=== PATIENT | female | born 1985 | race Caucasian/White ===

== ENCOUNTER 2017-05-14 08:52 | Emergency (ER) | payer OTHER ==
--- NOTE | 2017-05-14 09:01 | ED ---
Upper Extremity Pain - HPI Summary HPI Summary: Patient presents to with CC of R hand pain x 5 days. Patient reports "waking up with pain in my first 2 fingers" of her R hand. She denies any known ERIK or trauma, but reports "falling down the stairs on Thanksgiving" without direct hand pain at time of fall. She reports numbness and tingling chronically in her fingers and hand from chronic bilateral carpal tunnel - but reports acute worsening of her pain and neuropathy in first 2 digits, with radiation up to the elbow. Pain is most pronounced at the wrist and first joint of the thumb. She wears nightly splints, and takes ibprofen chronically - which has not relieved her symptoms. PCP is managing her chronic b/l C. tunnel. 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 - History of Current Complaint Stated Complaint: RIGHT HAND PAIN Time Seen by Provider: 05/14/17 08:59 Hx Obtained From: Patient Hx Last Menstrual Period: 12/11/15 - Allergies/Home Medications Allergies/Adverse Reactions: Allergies Allergy/AdvReac Type Severity Reaction Status Date / Time Hydrocodone Allergy Severe Hyperventalation,difficulty Verified 05/14/17 09:02 breathing PMH/Surg Hx/FS Hx/Imm Hx Psychiatric History: Reports: Hx Anxiety - and history of bilateral carpal tunnel - Surgical History Surgery Procedure, Year, and Place: Appendectomy. X2. TUBAL LIGATION - Family History Known Family History: Positive: Hypertension - Social History Alcohol Use: None Substance Use Type: Reports: None Smoking Status (MU): Heavy Every Day Tobacco Smoker Type: Cigarettes Amount Used/How Often: 1 PPD Have You Smoked in the Last Year: Yes Review of Systems All Other Systems Reviewed And Are Negative: Yes Physical Exam Triage Information Reviewed: Yes Vital Signs Reviewed: Yes Appearance: Positive: Well-Appearing Skin: Positive: Warm, Skin Color Reflects Adequate Perfusion Head/Face: Positive: Normal Head/Face Inspection Eyes: Positive: Normal Musculoskeletal: Positive: Other - R hand: normal inspection. Tenderness to palpation at MCP, PIP joint. Thenar immenence nontender. metacarpals nontender. no snuffbox tenderness. Wrist AROM PROM wnl. Radial +2. Oxygen Therapy Teacher strength weakened. Thumb opposition normal. No palpable abnormality. Psychiatric: Positive: Normal AVPU Assessment: Alert Diagnostics - Laboratory Lab Statement: Any lab studies that have been ordered have been reviewed, and results considered in the medical decision making process. - Radiology R wrist xr negative Xray Interpretation: No Acute Changes Course/Dx - Diagnoses Provider Diagnoses: Neuropathy of right hand Discharge - Discharge Plan Condition: Stable Disposition: HOME Referrals: Irma CONNOLLY,Arthur Araiza [Physician Tuna Purse Seiner] - As Soon As Possible Additional Instructions: As we discussed, your xrays were negative for any acute bony dislocation/ fracture or misalignment. I suspect this is a reactivation or flare up of your chronic carpal tunnel syndrome. I advise you to continue taking ibuprofen as needed for pain relief, using your nightly wrist splints, and activity modification - especially as you are a feed preparation operator. Please follow up with your PCP to discuss further options including surgery for this chronic issue. Please return if your symptoms worsen or do not improve expectantly. Images - Images Hands: 1 - TTP.
[2017-05-14 09:02] VITALS: BP 124/71
--- NOTE | 2017-05-14 09:51 | RAD ---
Indication: Right wrist pain, first and second digit pain 3 views of the wrist demonstrates no fracture. No other bone or joint abnormality is identified. IMPRESSION: NO FRACTURE OF THE WRIST IS NOTED.
== END 2017-05-14 10:14 | disposition home or self-care (01) ==
LOC: UCCORT 08:52
DX: G62.9 Polyneuropathy, unspecified (principal); F41.9 Anxiety disorder, unspecified; Z88.5 Allergy status to narcotic agent; F17.210 Nicotine dependence, cigarettes, uncomplicated
CPT/HCPCS: 99211; G0463

== ENCOUNTER 2017-12-28 09:58 | Emergency (ER) | payer OTHER ==
[2017-12-28 10:29] VITALS: BP 110/54
--- NOTE | 2017-12-28 11:01 | UC ---
Skin Complaint HPI - HPI Summary HPI Summary: Pt c/o sudden onset of fine, pruritic rash that began 2 days ago on left buttock cheek and has diffusely spread to upper and lower extremities as well as trunk. Pt reports that she is "getting over" a cold and woke this morning with three clear fluid filled blisters on lower right side of lip . Pt reports she has had a significant amount of stress recently. - History of Current Complaint Chief Complaint: UCRash Time Seen by Provider: 12/28/17 10:09 Stated Complaint: RASH ON BODY/MOUTH Hx Obtained From: Patient Hx Last Menstrual Period: 12/01/17 ?: No Onset/Duration: Sudden Onset, Worse Since - osnet Skin Exposure Onset/Duration: Days Ago Onset Severity: Mild Current Severity: Mild Pain Intensity: 0 Location: Diffuse Character: Pruritus, Redness, Raised Aggravating Factor(s): Nothing Alleviating Factor(s): Nothing Associated Signs & Symptoms: Positive: Rash - Allergy/Home Medications Allergies/Adverse Reactions: Allergies Allergy/AdvReac Type Severity Reaction Status Date / Time hydrocodone Allergy HYPERVENTALATION, Verified 12/28/17 10:22 DIFFICULTY BREATHING Home Medications: Home Medications diPHENhydraMINE PO* [Benadryl PO 25 MG TAB*] 50 mg PO Q6H PRN 12/28/17 [History Confirmed 12/28/17] Review of Systems Constitutional: Negative Skin: Rash Eyes: Negative ENT: Negative Respiratory: Negative Cardiovascular: Negative Gastrointestinal: Negative Genitourinary: Negative Motor: Negative Neurovascular: Negative Musculoskeletal: Negative Neurological: Negative Psychological: Negative Is Patient Immunocompromised?: No All Other Systems Reviewed And Are Negative: Yes PMH/Surg Hx/FS Hx/Imm Hx Previously Healthy: Yes Psychological History: Anxiety - Surgical History Surgical History: Yes Surgery Procedure, Year, and Place: Appendectomy. X2. TUBAL LIGATION - Family History Known Family History: Positive: Cardiac Disease, Hypertension - Social History Occupation: Employed Full-time Lives: With Family Alcohol Use: None Substance Use Type: None Smoking Status (MU): Former Smoker Type: Cigarettes Amount Used/How Often: 1 PPD Have You Smoked in the Last Year: Yes When Did the Patient Quit Smoking/Using Tobacco: 05/31 Household Exposure Type: Cigarettes Physical Exam Triage Information Reviewed: Yes Appearance: Well-Appearing Vital Signs: Initial Vital Signs Temp 98.7 F 12/28/17 10:23 Pulse 70 12/28/17 10:23 Resp 18 12/28/17 10:23 BP 110/54 12/28/17 10:23 Pulse Ox 100 12/28/17 10:23 Vital Signs Reviewed: Yes Eye Exam: Normal ENT: Positive: Hearing grossly normal Dental Exam: Normal Neck exam: Normal Respiratory: Positive: No respiratory distress Abdominal Exam: Other Abdomen Description: Positive: Other: - fine slightly raised erythematous rash Musculoskeletal Exam: Normal Neurological Exam: Normal Psychological Exam: Normal Skin: Positive: rashes - fine, diffuse, pin prick, mild erythema slightly raised with c/o "itchiness" Course/Dx - Differential Diagnoses - Skin Complaint Differential Diagnoses: Contact Dermatitis, Viral Exanthem - Diagnoses Provider Diagnoses: viral exanthem. oral herpes Discharge - Sign-Out/Discharge Documenting (check all that apply): Patient Departure - Discharge Plan Condition: Stable Disposition: HOME Prescriptions: Cetirizine* [ZyrTEC 10 MG TAB*] 10 mg PO DAILY #10 tab Hydrocortisone 1% CREAM(NF) 1 applic TOPICAL DAILY PRN #1 tube PRN Reason: Rash Patient Education Materials: Viral Exanthem (ED) Referrals: KAYE Hall [Primary Care Provider] - - Billing Disposition and Condition Condition: STABLE Disposition: Home
== END 2017-12-28 10:58 | disposition home or self-care (01) ==
LOC: UCCORT 09:58
DX: B09 Unspecified viral infection characterized by skin and mucous membrane lesions (principal); B00.9 Herpesviral infection, unspecified
CPT/HCPCS: 99212; G0463

== ENCOUNTER 2018-02-05 17:56 | Emergency (ER) | payer OTHER ==
[2018-02-05 18:30] VITALS: BP 121/58
--- NOTE | 2018-02-05 19:42 | UC ---
Ear Complaint HPI - HPI Summary HPI Summary: Patient states she started having right ear pain yesterday. She denies any known trigger, denies swimming, cold-like symptoms, chills or fever, or history of smoking. She states her spouse smokes outside the house. She has noticed decrease in hearing on the right side. - History of Current Complaint Chief Complaint: UCEar Stated Complaint: RIGHT EAR PAIN Time Seen by Provider: 02/05/18 18:43 Hx Obtained From: Patient Hx Last Menstrual Period: 01/08/18 ?: No Onset/Duration: Sudden Onset Severity Initially: Moderate Severity Currently: Moderate Pain Intensity: 3 Aggravating Factors: Nothing Alleviating Factors: Nothing Associated Signs/Symptoms: Positive: Hearing Loss - Allergies/Home Medications Allergies/Adverse Reactions: Allergies Allergy/AdvReac Type Severity Reaction Status Date / Time hydrocodone Allergy HYPERVENTALATION, Verified 02/05/18 18:25 DIFFICULTY BREATHING Home Medications: Home Medications FLUoxetine CAP* [Prozac CAP*] 40 mg QAM 02/05/18 [History Confirmed 02/05/18] busPIRone TAB* [Buspar TAB*] 1 tab TID 02/05/18 [History Confirmed 02/05/18] PMH/Surg Hx/FS Hx/Imm Hx Previously Healthy: Yes Psychological History: Anxiety, Depression - Surgical History Surgical History: Yes Surgery Procedure, Year, and Place: Appendectomy. X2. TUBAL LIGATION - Family History Known Family History: Positive: Cardiac Disease, Hypertension - Social History Alcohol Use: None Substance Use Type: None Smoking Status (MU): Former Smoker Type: Cigarettes Amount Used/How Often: 1 PPD Have You Smoked in the Last Year: Yes When Did the Patient Quit Smoking/Using Tobacco: 05/31 Household Exposure Type: Cigarettes - Immunization History Most Recent Tetanus Shot: utd Review of Systems Constitutional: Negative ENT: Ear Ache All Other Systems Reviewed And Are Negative: Yes Physical Exam Triage Information Reviewed: Yes Appearance: Well-Appearing, No Pain Distress, Well-Nourished Vital Signs: Initial Vital Signs Temp 98.7 F 02/05/18 18:26 Pulse 68 02/05/18 18:26 Resp 16 02/05/18 18:26 BP 121/58 02/05/18 18:26 Pulse Ox 100 02/05/18 18:26 Vital Signs Reviewed: Yes Eyes: Positive: Conjunctiva Clear ENT: Positive: Pharynx normal - tympanic erythema and effusion noted on right ear Neck: Positive: Supple, Nontender, No Lymphadenopathy Respiratory: Positive: Chest non-tender, Lungs clear, Normal breath sounds, No respiratory distress Cardiovascular: Positive: RRR, No Murmur, Pulses Normal, Brisk Capillary Refill Abdomen Description: Positive: Nontender Ear Complaint Course/Dx - Course Course Of Treatment: Acute otitis media, started on Augmentin as prescribed. Take ibuprofen as needed to control pain. Follow-up with primary care. - Differential Dx/Diagnosis Provider Diagnoses: Right acute otitis media Discharge - Sign-Out/Discharge Documenting (check all that apply): Patient Departure All imaging exams completed and their final reports reviewed: No Studies - Discharge Plan Condition: Stable Disposition: HOME Prescriptions: Amoxicillin/Clavulanate TAB* [Augmentin TAB 875*] 875 mg PO BID 10 Days #20 tab Patient Education Materials: Amoxicillin/Clavulanate Potassium (By mouth), Ear Infection (ED) Referrals: [facility] [Outside] No Primary Care Phys,NOPCP [Primary Care Provider] - - Billing Disposition and Condition Condition: STABLE Disposition: Home
== END 2018-02-05 19:25 | disposition home or self-care (01) ==
LOC: UCCORT 17:56
DX: H66.91 Otitis media, unspecified, right ear (principal); Z88.6 Allergy status to analgesic agent; F41.8 Other specified anxiety disorders; Z87.891 Personal history of nicotine dependence
CPT/HCPCS: 99212; G0463

== ENCOUNTER 2018-10-18 20:11 | Emergency (ER) | payer OTHER ==
[2018-10-18 20:32] VITALS: BP 126/71
--- NOTE | 2018-10-18 20:38 | UC ---
UC General HPI - HPI Summary HPI Summary: sore throat with swollen glands x 1 day. no fever. - History of Current Complaint Chief Complaint: UCGeneralIllness Stated Complaint: SORE THROAT Time Seen by Provider: 10/18/18 20:31 Hx Obtained From: Patient Hx Last Menstrual Period: 10/10/18 Onset/Duration: Gradual Onset Timing: Constant Pain Intensity: 6 Associated Signs & Symptoms: Negative: Fever - Allergy/Home Medications Allergies/Adverse Reactions: Allergies Allergy/AdvReac Type Severity Reaction Status Date / Time hydrocodone Allergy HYPERVENTALATION, Verified 04/01/18 11:34 DIFFICULTY BREATHING PMH/Surg Hx/FS Hx/Imm Hx Psychological History: Anxiety - Surgical History Surgical History: Yes Surgery Procedure, Year, and Place: Appendectomy. X2. TUBAL LIGATION - Family History Known Family History: Positive: Cardiac Disease, Hypertension - Social History Alcohol Use: None Substance Use Type: Marijuana Smoking Status (MU): Former Smoker Type: Cigarettes Amount Used/How Often: 1 PPD Have You Smoked in the Last Year: Yes When Did the Patient Quit Smoking/Using Tobacco: 05/31 Household Exposure Type: Cigarettes - Immunization History Most Recent Tetanus Shot: utd Review of Systems All Other Systems Reviewed And Are Negative: Yes ENT: Positive: Sore Throat Physical Exam Triage Information Reviewed: Yes Appearance: Well-Appearing Vital Signs: Initial Vital Signs Temp 98.2 F 10/18/18 20:28 Pulse 94 10/18/18 20:28 Resp 16 10/18/18 20:28 BP 126/71 10/18/18 20:28 Pulse Ox 100 10/18/18 20:28 Vital Signs Reviewed: Yes Eyes: Positive: Conjunctiva Clear ENT: Positive: Pharyngeal erythema, TMs normal, Tonsillar swelling - mild, Tonsillar exudate, Uvula midline. Negative: Nasal congestion, Nasal drainage, Trismus, Muffled voice, Hoarse voice Neck: Positive: Supple, Tenderness @ - peritonsialr nodes, Enlarged Nodes @ - peritonsilar Respiratory: Positive: Lungs clear, Normal breath sounds, No respiratory distress Cardiovascular: Positive: RRR, No Murmur Abdomen Description: Positive: Nontender, No Organomegaly, Soft Bowel Sounds: Positive: Present Musculoskeletal: Positive: ROM Intact Neurological: Positive: Alert Psychological: Positive: Age Appropriate Behavior Skin Exam: Normal Diagnostics - Laboratory Lab Results: rapid strep=positive Course/Dx - Diagnoses Provider Diagnosis: Strep throat Discharge - Sign-Out/Discharge Documenting (check all that apply): Patient Departure All imaging exams completed and their final reports reviewed: No Studies - Discharge Plan Condition: Stable Disposition: HOME Prescriptions: Amoxicillin PO (*) [Amoxicillin 500 MG CAP*] 500 mg PO Q12H 10 Days #20 cap Patient Education Materials: Strep Throat (DC) Referrals: Lin Slater MD [Primary Care Provider] - Additional Instructions: FOLLOW UP IF NOT BETTER IN 5 DAYS OR SOONER IF WORSE. - Billing Disposition and Condition Condition: STABLE Disposition: Home
[2018-10-18] MEDS ORDERED: Amoxicillin PO (*) 500 MG CAP PO ONE (20:46)
== END 2018-10-18 20:55 | disposition home or self-care (01) ==
LOC: UCCORT 20:11
DX: J02.0 Streptococcal pharyngitis (principal); F41.9 Anxiety disorder, unspecified; Z88.5 Allergy status to narcotic agent; Z87.891 Personal history of nicotine dependence
CPT/HCPCS: 87651; 99212; A9270-GY; G0463

== ENCOUNTER 2019-06-02 06:32 | Day surgery (SDC) | payer OTHER ==
[~2019-06-02 06:32] MED LIST: Buffered Lidocaine 1% SYRIN* 1 ML/SYRINGE INTRADERM ONE; Dexamethasone IV* 4 MG/ML 1 ML (4 MG) IV SLOW PU ONE; Famotidine IV* 10 MG/ML 2 ML (20 mg) IV ONE; Lactated Ringers 1000 ML Bag* 1,000 ML IV SCH
[2019-06-02] MEDS ORDERED: Dexamethasone IV* 4 MG/ML 1 ML (4 MG) ONE (06:33)
[2019-06-02] MEDS ORDERED: Famotidine IV* 10 MG/ML 2 ML (20 mg) ONE (06:34)
[2019-06-02] MEDS ORDERED: Buffered Lidocaine 1% SYRIN* 1 ML/SYRINGE INTRADERM ONE (06:57)
[2019-06-02] MEDS ORDERED: Bupivacaine 0.25% SDV* 30 ML ONE (07:05)
[2019-06-02] MEDS ORDERED: Midazolam* 1 MG/ML 5 ML VIAL (5 MG) ONE (07:11)
[2019-06-02] MEDS ORDERED: fentaNYL* 50 MCG/ML 5 ML VIAL (250 MCG VIAL) ONE (07:11)
[2019-06-02] MEDS ORDERED: Propofol* 10 MG/ML 20 ML BTL ONE (07:15)
[2019-06-02] MEDS ORDERED: Lidocaine 2% PF * 5 ML VIAL ONE (07:15)
[2019-06-02] MEDS ORDERED: Ketorolac INJ* 30 MG/ML 1 ML VIAL ONE (07:15)
[2019-06-02] MEDS ORDERED: Ondansetron INJ* 2 MG/ML VIAL ONE (07:15)
[2019-06-02] MEDS ORDERED: Naloxone* 0.4 MG/ML 1 ML VIAL IV PRN (08:36)
[2019-06-02 09:28] VITALS: BP 133/73
--- NOTE | 2019-06-02 14:58 | OP ---
DATE OF OPERATION: 06/02/19 [facility] DATE OF : 89 SURGEON: Joao Wise MD UNDERWRITING CLERK: JORGE Ge ANESTHESIOLOGIST: Dr. Kraus. ANESTHESIA: General. PRE-OP DIAGNOSIS: Bilateral carpal tunnel syndrome. POST-OP DIAGNOSIS: Bilateral carpal tunnel syndrome. OPERATIVE PROCEDURES: 1. Right endoscopic carpal tunnel release. 2. Left endoscopic carpal tunnel release. INDICATIONS: Ms. Meyer is 33. She has bilateral progressive carpal tunnel syndrome. We had talked about treatment options, risks, and benefits. She wanted to proceed with surgery. ESTIMATED BLOOD LOSS: 2 mL. COMPLICATIONS: None. FINDINGS: See above and below. DESCRIPTION OF PROCEDURE: Ms. Meyer was seen in the preoperative holding area. The correct site, side, and procedures were identified. We came back to the operating room where the arm was prepped and draped in the usual fashion and a timeout was performed. The arm was exsanguinated with the Esmarch and the tourniquet was inflated to 225 mmHg. This was on the left arm. I first made a 1 cm incision just ulnar to the palmaris longus tendon. I bluntly spread and opened up the distal antebrachial fascia. A two-pronged skin hook was placed under that. The carpal tunnel was freed up and dilated open. I then placed the MicroAire Endoscopic Carpal Tunnel System into the left carpal tunnel. When I had it in the appropriate location, I elevated the blade and the release was carried out from distal to proximal. I then placed a Sha retractor and confirmed the release distally. I then released the distal antebrachial fascia proximally with the tenotomy scissors. At this point, everything was looking good. The wound was irrigated out. Skin was closed with 4-0 Prolene suture and Steri-Strip. I then made a 1 cm incision over the ulnar aspect of the palmaris longus tendon on the right side. Dissection was carried down. The distal antebrachial fascia was spread and a two-pronged skin hook was placed underneath it. I then dilated open the carpal tunnel. I placed the MicroAire Endoscopic Carpal Tunnel System. The release was carried out from distal to proximal in the same manner. I then released the distal antebrachial fascia. The wound was irrigated out and closed with a 4-0 Prolene suture and a Steri-Strip. Marcaine 0.25% had been infiltrated on both operative areas. Soft dressings were applied and she was taken to the recovery room in stable condition. [id number]/[facility] #: [id number] MARISSA
== END 2019-06-02 09:40 | disposition home or self-care (01) ==
LOC: OREAST 06:32
PROVIDERS: ATTEND Orthopaedic Surgery Hand Surgery
PROC: 01N54ZZ Release Median Nerve, Percutaneous Endoscopic Approach (ICD-10-PCS; 2019-06-02)
PROC: 01N54ZZ Release Median Nerve, Percutaneous Endoscopic Approach (ICD-10-PCS; principal; 2019-06-02 07:30)
DX: G56.03 Carpal tunnel syndrome, bilateral upper limbs (principal); J45.909 Unspecified asthma, uncomplicated; F41.9 Anxiety disorder, unspecified; Z87.891 Personal history of nicotine dependence; Z79.51 Long term (current) use of inhaled steroids
CPT/HCPCS: J1100; J1885; J2250; J2405; J2704; J3010; J3490